=== PATIENT | female | born 1985 | race Two or more races ===

== ENCOUNTER → 2020-12-17 | Outpatient (CLI) | payer OTHER ==
[~2020-12-17] VITALS: Ht 162.6 cm; Wt 72.6 kg
[~2020-12-17] MED LIST: ALBU2.5V8 INH; HYDR25TA PO; SINCALIDE 1.45 MCG in IV NORMAL SALINE 50ML 30 ML IV ONE
--- NOTE | 2020-12-17 08:24 | RAD ---
INDICATION : Reason: epigastric pain / Spl. Instructions: / History: COMPARISON: None TECHNIQUE: Multiple ultrasound images obtained through the abdomen in grayscale and color. FINDINGS: Pancreas: No gross abnormality identified in visualized portions of pancreas. Liver: Echotexture within normal limits in visualized portions of liver. Gallbladder: No wall thickening or stones. IVC: Partially distended at level of liver. Common Bile Duct: Not dilated. Right Kidney: No hydronephrosis. IMPRESSION: * No biliary ductal dilation or gallstones. Electronically signed by: Kobi Cedeno MD (12/17/2020 8:21 AM) [id number]
--- NOTE | 2020-12-17 10:56 | RAD ---
HEPATOBILIARY SCAN WITH EJECTION FRACTION 12/17/2020 10:53 AM History: Reason: abdomen pain /x5 months.: Procedure: Serial static images are obtained of the liver and biliary system in the frontal projectio n following IV administration of 4.9 mCi of Technetium 99m Choletec. After filling of the gallbladd er, 1.45mcg of sincalide were infused over 30 minutes and dynamic imaging continued over this period. The gallbladder ejection fraction was calculated. Findings: There is prompt hepatic clearance of tracer from the blood pool. There is homogeneous distr ibution throughout the liver. The gallbladder ejection fraction measures 91% (normal gallbladder EF is 35% or greater). IMPRESSION: 1. The cystic duct and common bile duct are patent. Negative for acute cholecystitis. 2. The gallbladder ejection fraction is normal Electronically signed by: Jalil Do MD (12/17/2020 10:53 AM) [id number]
== END ==
LOC: US 07:01
PROVIDERS: ATTEND Internal Medicine Gastroenterology
DX: R10.13 Epigastric pain (principal); R10.9 Unspecified abdominal pain
CPT/HCPCS: 76705; 78227; A9537; J2805

== ENCOUNTER → 2021-02-15 | Day surgery (SDC) | payer OTHER ==
[~2021-02-15] MED LIST changes: +HYDROmorphone 2 MG/ML VIAL IVP PRN; +IV RINGERS,LACTATED 1000ML 1,000 ML IV SCH; +MORPHINE SULFATE 2 MG/ML INJ. IVP PRN; +PROCHLORPERAZINE 10 MG/2 ML VIAL. IVP PRN; +PROPOFOL 10 MG/ML (20ML) VIAL. IV ONE; -SINCALIDE 1.45 MCG in IV NORMAL SALINE 50ML 30 ML IV ONE; +fentaNYL PF VIAL 100 MCG/2 ML VIAL IVP PRN
[2021-02-15 08:02] VITALS: BP 111/66
--- NOTE | 2021-02-15 08:42 | HP ---
DATE OF SERVICE: 02/15/2021 ADMIT DATE: 02/15/2021 UPDATED HISTORY AND PHYSICAL REFERRING PHYSICIAN: Sowmya Rizvi MD REASON: Persistent abdominal pain. HISTORY OF PRESENT ILLNESS: A 36-year-old female whose past medical history is significant for H. pylori gastritis as well as asthma, seen with persistent epigastric pain, previous ultrasound and HIDA scan with ejection fraction revealed a normal ejection fraction without symptom reproduction with Kinevac injection, no cholelithiasis. She has had dyspepsia, has only been partially with omeprazole. Weight has been stable. There is no family history of peptic ulcer disease or gallbladder disease. With her continued symptoms, she requests additional evaluation. PAST MEDICAL HISTORY: Asthma, H. pylori. ALLERGIES: CEFTRIAXONE. MEDICATIONS: Benadryl and hydroxyzine. FAMILY AND SOCIAL HISTORY: Colon polyp with mother. Diabetes with mother and maternal grandmother. Hypertension with both parents. Uterine cancer with a grandmother. Ovarian cancer with an aunt. She is nonsmoker and nondrinker. PAST SURGICAL HISTORY: She is 4, para 2. REVIEW OF SYSTEMS: Per records. PHYSICAL EXAMINATION: GENERAL: Reveals a well-nourished, well-developed female. VITAL SIGNS: Temp is 98, pulse 69, respiratory rate 20. LUNGS: Clear. CARDIOVASCULAR: Reveals an S1, S2, without S3, S4 or appreciable murmur. ABDOMEN: Reveals a soft abdomen, normal bowel sounds, without appreciable hepatosplenomegaly. EXTREMITIES: Reveals no cyanosis, clubbing or edema. IMPRESSION: Epigastric abdominal pain, etiology to be determined peptic ulcer disease, celiac, gastroparesis, hiatal hernias to be excluded with upper endoscopy. Her previous hepatobiliary imaging has been unrevealing. KARINE DR: Martir TID: [id number]
[2021-02-15 08:52] VITALS: BP 121/58
--- NOTE | 2021-02-19 17:18 | PATHOLOGY ---
[facility] Accession Number: [id number] . 01 Material submitted: . PART A: duodenum - DUODENUM BX PART B: esophagus - DISTAL ESOPHAGUS BX. Modifiers: distal . 01 Clinical history: . EPIGASTRIC PAIN EGD . 02 Diagnosis: A. Duodenal biopsies: - No diagnostic abnormalities. . B. 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 . (JPM:mml; 02/19/2021) [facility] 02/19/2021 1602 Local . 02 Comment: Sections of the duodenal biopsy reveal segments of duodenal and small intestine mucosa. Where best oriented, the mucosal villi show no sprue-like changes. . Sections of the distal esophageal biopsy reveal segments of tangentially-oriented hyperplastic squamous esophageal mucosa consistent with reflux changes. There are also two segments of columnar-lined mucosa showing moderate chronic inflammation and a small focus of intestinal metaplasia with goblet cells consistent with Leal's change. There is no dysplasia or evidence of malignancy. . (JPM:mml; 02/19/2021) . 02 Electronically signed: . Gutierrez Small MD, Pathologist NPI- [id number] . 01 Gross description: . A. The specimen is received in formalin, labeled "Mandy Pickeringa Niño, duodenum biopsy". Received are multiple segments of pale muñiz tissue ranging in size from 0.1-0.6 cm in maximum dimensions. The specimen is submitted entirely in cassette A1. . B. The specimen is received in formalin, labeled "Mandynaty ValenzuelaPrakash Niño, distal esophagus biopsy". Received are four segments of pale muñiz tissue ranging in size from 0.3-0.6 cm in maximum dimensions. The specimen is submitted entirely in cassette B1. (CAA; 02/18/2021) QAC/QAC 02/18/2021 1027 Local . 02 Pathologist provided ICD-10: K22.70, R10.13 . 02 CPT . 069506, [id number] Specimen Comment: A courtesy copy of this report has been sent to [phone] Specimen Comment: Report sent to / DR GUTIERREZ Performed at: [address] [facility] [address] [id number] MD Bryson Orozco MD Phone: [phone] Performed at: 02 [facility] [address] [place] [id number] MD Gutierrez Small MD Phone: [phone]
== END | disposition home or self-care (01) ==
LOC: ENDOS 07:38
PROVIDERS: ATTEND Internal Medicine Gastroenterology
DX: R10.13 Epigastric pain (principal); K21.00 Gastro-esophageal reflux disease with esophagitis, without bleeding; K31.89 Other diseases of stomach and duodenum; K22.70 Barrett's esophagus without dysplasia; J45.909 Unspecified asthma, uncomplicated; Z79.899 Other long term (current) drug therapy; Z98.890 Other specified postprocedural states; Z88.1 Allergy status to other antibiotic agents; Z83.71 Family history of colonic polyps; Z82.49 Family history of ischemic heart disease and other diseases of the circulatory system; Z83.3 Family history of diabetes mellitus
CPT/HCPCS: 43239; 81025; J2704